=== PATIENT | male | born 1950 | race American Indian/Alaskan Native ===

== ENCOUNTER 2018-09-30 09:08 | Day surgery (SDC) | payer OTHER ==
--- NOTE | 2018-09-30 08:34 | Anesthesia Consultation ---
Anesthesia Consult and Med Hx Date of service: 09/30/18 - Airway Anesthetic Teeth Evaluation: Good ROM Head & Neck: Adequate Mental/Hyoid Distance: Adequate Mallampati Class: Class I Intubation Access Assessment: Good - Pulmonary Exam CTA: Yes - Cardiac Exam Cardiac Exam: RRR - Pre-Operative Health Status ASA Pre-Surgery Classification: ASA2 Proposed Anesthetic Plan: MAC - Pulmonary Hx Asthma: Yes
--- NOTE | 2018-09-30 08:35 | Anesthesia Day of Surgery ---
Anesthesia Day of Surgery - Day of Surgery Patient Examined: Yes Patient H&P Reviewed: Yes Patient is NPO: Yes Beta Blockers: No Cardiac Clearance: No Pulmonary Clearance: No
[~2018-09-30 09:08] MED LIST: NACL 0.9% 1000 ML 1,000 ML IV SCH
[2018-09-30] MEDS ORDERED: DIPRIVAN 10 MG/ML IV ONE ×2 (10:02)
--- NOTE | 2018-09-30 10:23 | Short Stay Summary ---
Short Stay Documentation Date of service: 09/30/18 Narrative H&P: Patient is a 68 yo male who presents for screening colonoscopy. Pt denies gi complaints at this time including abd pain, gi bleeding, change in bowel habits, and weight loss. - History Past Medical History: other (no changes from office note) Past Surgical History: No surgical history Social history: no significant social history - Allergies and Medications Current Medications: Allergies No Known Allergies Allergy (Verified 09/28/18 12:42) Home Medications Medication Instructions Recorded Confirmed Last Taken Type Albuterol Sulfate Hfa 2 puff INHALATION Q4HR PRN 09/28/18 09/30/18 09/30/18 History Active Medications Sodium Chloride (Nacl 0.9% 1000 Ml) 1,000 mls @ 50 mls/hr IV DIRECT ARBEN Last Admin: 09/30/18 09:35 Dose: 50 mls/hr Documented by: - Physical exam General appearance: no acute distress Lungs: Clear to auscultation Heart: Regular rate, Normal S1, Normal S2 Gastrointestinal: normal Extremities: No edema - Brief post op/procedure progress note Date of procedure: 09/30/18 Pre-op diagnosis: screening colonoscopy Post-op diagnosis: same (normal colon) Procedure: Colonoscopy Anesthesia: MAC Findings: normal colonoscopy Surgeon: LYNSEY MONAHAN Estimated blood loss: none Pathology: none Condition: stable - Disposition Condition at discharge: Good Disposition: DC-01 TO HOME OR SELFCARE Short Stay Discharge Plan Follow up with: KHRIS MUNOZ MD [Primary Care Provider] - 7 Days
--- NOTE | 2018-09-30 10:27 | Operative Report ---
Operative Report Operative Report: Colonoscopy Procedure Note Date of procedure: 09/30/2018 Endoscopist: Heladio Calzada Pre-op diagnosis: Screening for colorectal cancer Post-op diagnosis: Normal colon Anesthesia: MAC Complications: No immediate complications Estimated blood loss: None Procedure: After consent was obtained, the patient was placed in the left lateral decubitus position. The fujinon colonoscope was inserted into the patient's rectum under direct vision, and advanced to the cecum without difficulty. The patient tolerated the procedure well. The views of the mucosa were good. The quality of prep was good. The patient's vital signs were monitored continuously throughout the procedure. Findings: The entire examined colon appeared normal. Impression: 1. Normal colonoscopy Recommendations: -repeat colonoscopy in 10 years for screening purposes
[2018-09-30] MEDS ORDERED: WATER FOR IRRIG STERILE IR ONE (10:56)
[2018-09-30 10:57] VITALS: BP 115/74
== END 2018-09-30 09:09 | disposition home or self-care (01) ==
LOC: GIO 09:08
PROVIDERS: ATTEND Internal Medicine Gastroenterology
DX: Z12.11 Encounter for screening for malignant neoplasm of colon (principal); Z79.899 Other long term (current) drug therapy; J45.909 Unspecified asthma, uncomplicated
CPT/HCPCS: 45378; J2704; J7030